=== PATIENT | female | born 1940 | race Hispanic/Latino ===

== ENCOUNTER 2017-12-18 08:31 | Observation (INO) | payer OTHER ==
[~2017-12-18] VITALS: Ht 157.5 cm; Wt 91.6 kg
[2017-12-18] MEDS ORDERED: SODIUM CHLORIDE 0.9% 1000ML 1,000 ML IV ONE ×2 (09:02→15:28)
[2017-12-18 09:07] LABS: BASOPHILS % (AUTO) 0.3 % (0.0-5.0); EOSINOPHILS % (AUTO) 0.2 % (0.0-8.0); HEMATOCRIT 42.6 % (36-48); LYMPHOCYTES % (AUTO) 12.5 % (21.0-51.0); MEAN CORPUSCULAR HEMOGLOBIN 32.5 pg (27.0-33.0); MEAN CORPUSCULAR HGB CONC 34.4 g/dL (32.0-36.0); MEAN CORPUSCULAR VOLUME 94.5 fL (79-99); MONOCYTES % (AUTO) 8.8 % (3.0-13.0); NEUTROPHILS % (AUTO) 78.2 % (40.0-77.0); PLATELET COUNT (AUTO) 240 K/uL (130-400); RED BLOOD CELL COUNT(AUTO) 4.51 MIL/uL (4.00-5.50); RED CELL DISTRIBUTION WIDTH 12.5 % (11.0-15.5); WHITE BLOOD COUNT (AUTO) 11.3 K/uL (4.8-10.8)
[2017-12-18 09:15] LABS: CREATININE 1.1 mg/dL (0.5-1.5); POTASSIUM 3.8 mmol/L (3.5-5.1)
[2017-12-18 09:17] LABS: APPEARANCE,URINE CLEAR (CLEAR); BILIRUBIN,URINE SMALL (NEGATIVE); COLOR,URINE YELLOW (YELLOW); GLUCOSE, URINE (UA) NEGATIVE (NEGATIVE); KETONES,URINE NEGATIVE (NEGATIVE); LEUKOCYTE ESTERASE ,URINE TRACE (NEGATIVE); NITRATE,URINE NEGATIVE (NEGATIVE); OCCULT BLOOD,URINE LARGE (NEGATIVE); PH,URINE 6.5 (5.0-8.0); PROTEIN,URINE >=300 (NEGATIVE); UROBILINOGEN,URINE 0.2 mg/dL (0.2-1.0)
[2017-12-18 09:26] LABS: ALBUMIN 2.5 g/dL (3.5-5.0); BILIRUBIN,TOTAL 1.9 mg/dL (0.2-1.0); TOTAL PROTEIN, SERUM 7.1 g/dL (6.0-8.3)
[2017-12-18] MEDS ORDERED: MEROPENEM 1 GM VIAL ONE (09:37)
[2017-12-18 09:38] LABS: AMORPHOUS SEDIMENT,UR Many /LPF (None Seen); BACTERIA,URINE Few /HPF (None Seen); SQUAMOUS EPITHELIAL CELL,UR Few /HPF (0-2)
[2017-12-18] MEDS ORDERED: SODIUM CHLORIDE 0.9% 50 ML IV ONE (09:40)
[2017-12-18] MEDS ORDERED: ONDANSETRON HCL MDV 20ML 2 MG/ML VIAL ONE (09:54)
[2017-12-18] MEDS ORDERED: ACETAMINOPHEN 325 MG TAB ONE (09:55)
[2017-12-18 10:05] LABS: INR 1.09 (0.85-1.15); PARTIAL THROMBOPLASTIN TIME 34.9 SEC (26.3-35.5); PROTHROMBIN TIME 11.4 SEC (9.6-11.6)
[2017-12-18 10:29] LABS: CREATINE KINASE MB < 0.5 ng/mL (0.5-3.6); CREATINE KINASE, TOTAL 37 U/L (21-232); MYOGLOBIN 49 ng/mL (10-92); TROPONIN I < 0.04 ng/mL (0.00-0.06)
[2017-12-18] MEDS ORDERED: CEFTRIAXONE SODIUM 1 GM ONE (15:28)
[2017-12-18] MEDS ORDERED: PANTOPRAZOLE SODIUM 40 MG TABLET.DR PO ONE (15:29)
[2017-12-18 20:45] VITALS: BP 122/85
[2017-12-18] MEDS ORDERED: APIX5TAB PO (23:00)
[2017-12-18] MEDS ORDERED: LEVO75 PO (23:00)
[2017-12-18] MEDS ORDERED: ATOR10 PO (23:00)
[2017-12-18] MEDS ORDERED: METO-391 PO (23:00)
[2017-12-18] MEDS ORDERED: SERT50TA12 PO (23:00)
[2017-12-19] VITALS: BP 140/73
[2017-12-19] MEDS ORDERED: ZOLPIDEM TARTRATE 5 MG TAB PO PRN (01:30)
[2017-12-19] MEDS ORDERED: POTASSIUM CHLORIDE 10% ELIXIR 20 MEQ/15 ML UDCUP PO PRN (01:30)
[2017-12-19] MEDS ORDERED: NITROGLYCERIN 0.4 MG SL TAB SL PRN (01:30)
[2017-12-19] MEDS ORDERED: POTASSIUM CHLORIDE 20MEQ/100ML 100 ML IV PRN (01:30)
[2017-12-19] MEDS ORDERED: LIDOCAINE HCL-MPF 1% 2ML VIAL IVP PRN (01:30)
[2017-12-19] MEDS ORDERED: POTASSIUM CHLORIDE 20 MEQ ERTAB PO PRN (01:30)
[2017-12-19] MEDS ORDERED: LACTULOSE 20 GM/30 ML UDCUP PO PRN (01:30)
[2017-12-19] MEDS ORDERED: ONDANSETRON HCL MDV 20ML 2 MG/ML VIAL IVP PRN (01:30)
[2017-12-19] MEDS ORDERED: CLONIDINE HCL 0.1 MG TABLET PO PRN (01:30)
[2017-12-19] MEDS ORDERED: GLUCAGON 1MG KIT 1 MG ML IM PRN (01:30)
[2017-12-19] MEDS ORDERED: ACETAMINOPHEN 325 MG TAB PO PRN ×2 (01:30)
[2017-12-19] MEDS ORDERED: GUAIFENESIN-DM 200/20 MG 10 ML PO PRN (01:30)
[2017-12-19] MEDS ORDERED: DIPHENHYDRAMINE HCL 25 MG CAPSULE PO PRN (01:30)
[2017-12-19] MEDS ORDERED: DEXTROSE 50%-WATER 50 ML DISP.SYRIN IV PRN (01:30)
[2017-12-19] MEDS ORDERED: GUAIFENESIN SUGAR-FREE 100 MG/5 ML UDCUP PO PRN (01:30)
[2017-12-19] MEDS ORDERED: DiphenhydrAMINE HCL 50 MG/ML VIAL IV PRN (01:30)
[2017-12-19 04:00] VITALS: BP 122/65
[2017-12-19] MEDS: INSULIN HUMULIN R 100 UNIT/ML 3ML SQ SCH ×4 (06:33→21:00)
[2017-12-19] MEDS: PANTOPRAZOLE SODIUM 40 MG TABLET.DR PO SCH (06:37)
[2017-12-19 08:00] VITALS: BP 108/72
[2017-12-19 11:30] VITALS: BP 107/74
[2017-12-19 16:00] VITALS: BP 134/91
[2017-12-19] MEDS ORDERED: CEFTRIAXONE SODIUM 1 GM IVP SCH (16:00)
[2017-12-19] MEDS ORDERED: CEFTRIAXONE 1GM/D5W 50ML 50 ML IV SCH (16:00)
[2017-12-19 19:46] VITALS: BP 131/79
[2017-12-20 00:11] VITALS: BP 131/88
[2017-12-20 04:47] VITALS: BP 141/83
[2017-12-20 05:00] LABS: BASOPHILS % (AUTO) 0.6 % (0.0-5.0); EOSINOPHILS % (AUTO) 0.8 % (0.0-8.0); HEMATOCRIT 36.6 % (36-48); LYMPHOCYTES % (AUTO) 15.1 % (21.0-51.0); MEAN CORPUSCULAR HEMOGLOBIN 32.5 pg (27.0-33.0); MEAN CORPUSCULAR HGB CONC 34.2 g/dL (32.0-36.0); MONOCYTES % (AUTO) 10.6 % (3.0-13.0); NEUTROPHILS % (AUTO) 72.9 % (40.0-77.0); PLATELET COUNT (AUTO) 237 K/uL (130-400); RED BLOOD CELL COUNT(AUTO) 3.86 MIL/uL (4.00-5.50); RED CELL DISTRIBUTION WIDTH 12.5 % (11.0-15.5); WHITE BLOOD COUNT (AUTO) 7.8 K/uL (4.8-10.8)
[2017-12-20 05:20] LABS: ALBUMIN 1.9 g/dL (3.5-5.0); BILIRUBIN,TOTAL 0.7 mg/dL (0.2-1.0); CREATININE 0.7 mg/dL (0.5-1.5); POTASSIUM 3.8 mmol/L (3.5-5.1); TOTAL PROTEIN, SERUM 5.7 g/dL (6.0-8.3)
[2017-12-20] MEDS: PANTOPRAZOLE SODIUM 40 MG TABLET.DR PO SCH (06:53)
[2017-12-20] MEDS: INSULIN HUMULIN R 100 UNIT/ML 3ML SQ SCH ×2 (06:53→11:05)
[2017-12-20 08:22] VITALS: BP 121/76
[2017-12-20 12:00] VITALS: BP 113/56
== END 2017-12-20 16:00 | disposition home or self-care (01) ==
LOC: EDH 08:31 → EDHIP 15:05 → 4CH 22:27
PROVIDERS: ADMIT Family Medicine; ATTEND Family Medicine
DX: R10.2 Pelvic and perineal pain (principal); I10 Essential (primary) hypertension; E78.5 Hyperlipidemia, unspecified; I48.91 Unspecified atrial fibrillation; Z87.440 Personal history of urinary (tract) infections
CPT/HCPCS: 36415 ×2; 71045; 80053 ×2; 81001; 82550; 82553; 82948 ×6; 83605 ×2; 83874; 84484; 85025 ×2; 85610; 85730; 87040 ×2; 87088; 93005; 96374; 97161; 99285; A4218; G0378 ×49; G8978; G8979; G8980; G8981; G8982; G8983; J0696 ×2; J2185; J7030 ×2; 96360; 96361

== ENCOUNTER 2017-12-25 08:45 | Emergency (ER) | payer OTHER ==
[~2017-12-25 08:45] MED LIST: APIX5TAB PO; ATOR10 PO; LEVO75 PO; METO-391 PO; SERT50TA12 PO
[2017-12-25] MEDS ORDERED: PHENAZOPYRIDINE HCL 200 MG TABLET ONE (09:14)
[2017-12-25] MEDS ORDERED: ONDANSETRON ODT 4 MG TAB ONE (09:14)
== END 2017-12-25 10:37 | disposition home or self-care (01) ==
LOC: EDH 08:45
DX: N32.81 Overactive bladder (principal); N32.89 Other specified disorders of bladder; I10 Essential (primary) hypertension; I48.91 Unspecified atrial fibrillation; Z79.899 Other long term (current) drug therapy

== ENCOUNTER 2018-06-05 06:51 | Day surgery (SDC) | payer OTHER ==
[2018-06-04 12:21] VITALS: BP 104/64
[2018-06-04 12:29] LABS: BASOPHILS % (AUTO) 2.1 % (0.0-5.0); EOSINOPHILS % (AUTO) 1.2 % (0.0-8.0); HEMATOCRIT 43.9 % (36-48); LYMPHOCYTES % (AUTO) 29.6 % (21.0-51.0); MEAN CORPUSCULAR HEMOGLOBIN 31.5 pg (27.0-33.0); MEAN CORPUSCULAR HGB CONC 33.4 g/dL (32.0-36.0); MEAN CORPUSCULAR VOLUME 94.2 fL (79-99); MONOCYTES % (AUTO) 4.9 % (3.0-13.0); NEUTROPHILS % (AUTO) 62.2 % (40.0-77.0); PLATELET COUNT (AUTO) 278 K/uL (130-400); RED BLOOD CELL COUNT(AUTO) 4.66 MIL/uL (4.00-5.50); RED CELL DISTRIBUTION WIDTH 12.9 % (11.0-15.5); WHITE BLOOD COUNT (AUTO) 5.6 K/uL (4.8-10.8)
[2018-06-04 12:41] LABS: CREATININE 0.9 mg/dL (0.5-1.5); POTASSIUM 4.1 mmol/L (3.5-5.1)
[2018-06-05] VITALS (13 sets, daily range): BP systolic 107–148; BP diastolic 61–90
[~2018-06-05] VITALS: Ht 162.6 cm; Wt 87.7 kg
[~2018-06-05 06:51] MED LIST changes: -METO-391 PO; +METO100T14 PO
[2018-06-05] MEDS ORDERED: LIDOCAINE PF 2% 5ML ABBOJECT ONE ×2 (07:48→09:26)
[2018-06-05] MEDS ORDERED: PROPOFOL 10 MG/ML 20ML VIAL IV ONE (07:48)
[2018-06-05] MEDS ORDERED: FENTANYL CITRATE PF 50 MCG/1 ML 2ML VIAL ONE ×2 (07:49)
[2018-06-05] MEDS ORDERED: ROCURONIUM 10MG/1ML SYR 10 MG/ML ML ONE (07:49)
[2018-06-05] MEDS ORDERED: BUPIVACAINE/PF 0.5% 30ML VIAL ONE (08:02)
[2018-06-05] MEDS ORDERED: LACTATED RINGERS 1000ML 1,000 ML IV ONE (08:05)
[2018-06-05] MEDS ORDERED: CEFAZOLIN SODIUM 1 GM VIAL ONE ×2 (09:38→09:43)
[2018-06-05] MEDS ORDERED: PHENYLEPHRINE HCL 10 MG/ML 1ML VIAL IV ONE (09:58)
[2018-06-05] MEDS ORDERED: ONDANSETRON HCL 4 MG/2 ML VIAL ONE (10:00)
[2018-06-05] MEDS ORDERED: DEXAMETHASONE SOD PHOSPHATE 10MG/ML 1ML VIAL ONE (10:00)
[2018-06-05] MEDS ORDERED: GLYCOPYRROLATE 1 MG/5 ML SYRINGE ONE (10:06)
[2018-06-05] MEDS ORDERED: NEOSTIGMINE 5MG/5ML SYR IV ONE (10:06)
[2018-06-05] MEDS ORDERED: MEPERIDINE-PF 25 MG/ML SYG ONE (10:40)
== END 2018-06-05 12:08 | disposition home or self-care (01) ==
LOC: DAH 06:51
PROVIDERS: ATTEND Surgery
DX: K36 Other appendicitis (principal); I10 Essential (primary) hypertension; I48.91 Unspecified atrial fibrillation; Z90.49 Acquired absence of other specified parts of digestive tract; Z90.710 Acquired absence of both cervix and uterus; Z98.890 Other specified postprocedural states
CPT/HCPCS: 36415; 44970; 80048; 85025; 88300; A4649 ×4; C1769 ×3; J0690 ×2; J1100; J2001 ×2; J2175; J2370; J2405; J2704; J2710; J3010 ×2; J3490 ×2; J7030; J7120 ×2

== ENCOUNTER → 2019-01-25 | Outpatient (CLI) | payer OTHER | END | disposition home or self-care (01) | LOC: RAH 13:44 | PROVIDERS: ATTEND Internal Medicine | DX: R60.0 Localized edema (principal) | CPT/HCPCS: 93971 ==

== ENCOUNTER → 2019-07-07 | Outpatient (CLI) | payer OTHER | END | disposition home or self-care (01) | LOC: SHCH 13:04 | PROVIDERS: ATTEND Internal Medicine Cardiovascular Disease | DX: I87.2 Venous insufficiency (chronic) (peripheral) (principal); R59.0 Localized enlarged lymph nodes | CPT/HCPCS: 93970 ==

== ENCOUNTER → 2021-04-16 | Outpatient (CLI) | payer OTHER ==
[~2021-04-16] MED LIST changes: +REGADENOSON 0.4 MG/5 ML PF SYG IVP SCH; +SERT-439 PO; -SERT50TA12 PO
== END | disposition home or self-care (01) ==
LOC: SHCH 08:37
PROVIDERS: ATTEND Internal Medicine Cardiovascular Disease
DX: Z01.810 Encounter for preprocedural cardiovascular examination (principal); R06.00 Dyspnea, unspecified
CPT/HCPCS: 78452; 93017; 96374; A9500 ×2; J2785

== ENCOUNTER 2021-07-23 18:11 | Inpatient (IN) | payer OTHER ==
[~2021-07-23] VITALS: Ht 157.5 cm; Wt 97.3 kg
[~2021-07-23 18:11] MED LIST changes: -REGADENOSON 0.4 MG/5 ML PF SYG IVP SCH
[2021-07-23 20:05] LABS: BASOPHILS % (AUTO) 0.6 % (0.0-5.0); EOSINOPHILS % (AUTO) 2.8 % (0.0-8.0); HEMATOCRIT 33.3 % (36-48); LYMPHOCYTES % (AUTO) 26.4 % (21.0-51.0); MEAN CORPUSCULAR HEMOGLOBIN 31.6 pg (27.0-33.0); MEAN CORPUSCULAR HGB CONC 32.4 g/dL (32.0-36.0); MEAN CORPUSCULAR VOLUME 97.4 fL (79-99); MONOCYTES % (AUTO) 6.6 % (3.0-13.0); NEUTROPHILS % (AUTO) 63.1 % (40.0-77.0); PLATELET COUNT (AUTO) 222 K/uL (130-400); RED BLOOD CELL COUNT(AUTO) 3.42 MIL/uL (4.00-5.50); RED CELL DISTRIBUTION WIDTH 13.7 % (11.0-15.5); WHITE BLOOD COUNT (AUTO) 6.2 K/uL (4.8-10.8)
[2021-07-23 20:15] LABS: CREATININE 1.1 mg/dL (0.5-1.5); POTASSIUM 3.3 mmol/L (3.5-5.1)
[2021-07-23 20:27] LABS: ALBUMIN 2.2 g/dL (3.5-5.0); BILIRUBIN,TOTAL 0.9 mg/dL (0.2-1.0); TOTAL PROTEIN, SERUM 5.4 g/dL (6.0-8.3)
[2021-07-23] MEDS ORDERED: POTASSIUM BICARB/CIT AC 25 MEQ TABLET.EFF PO ONE (22:30)
[2021-07-23] MEDS ORDERED: LACTATED RINGERS 1000ML 1,000 ML IV ONE (22:30)
[2021-07-24] MEDS ORDERED: ONDANSETRON 4MG TABLET PO PRN (02:30)
[2021-07-24] MEDS ORDERED: ACETAMINOPHEN 325 MG TAB PO PRN (02:30)
[2021-07-24 06:11] LABS: BASOPHILS % (AUTO) 0.6 % (0.0-5.0); EOSINOPHILS % (AUTO) 2.3 % (0.0-8.0); HEMATOCRIT 30.7 % (36-48); LYMPHOCYTES % (AUTO) 28.3 % (21.0-51.0); MEAN CORPUSCULAR HEMOGLOBIN 31.2 pg (27.0-33.0); MEAN CORPUSCULAR HGB CONC 32.6 g/dL (32.0-36.0); MEAN CORPUSCULAR VOLUME 95.6 fL (79-99); MONOCYTES % (AUTO) 8.2 % (3.0-13.0); NEUTROPHILS % (AUTO) 60.2 % (40.0-77.0); PLATELET COUNT (AUTO) 229 K/uL (130-400); RED BLOOD CELL COUNT(AUTO) 3.21 MIL/uL (4.00-5.50); RED CELL DISTRIBUTION WIDTH 13.7 % (11.0-15.5); WHITE BLOOD COUNT (AUTO) 5.3 K/uL (4.8-10.8)
[2021-07-24 06:20] LABS: MAGNESIUM 0.9 mg/dL (1.80-2.40); POTASSIUM 3.6 mmol/L (3.5-5.1)
[2021-07-24] MEDS ORDERED: ENOXAPARIN SODIUM 30 MG/0.3 ML SQ SCH (09:00)
[2021-07-24 10:52] LABS: APPEARANCE,URINE Cloudy (CLEAR); BILIRUBIN,URINE Negative (NEGATIVE); COLOR,URINE Yellow (YELLOW); GLUCOSE, URINE (UA) Negative (NEGATIVE); KETONES,URINE Trace mg/dL (NEGATIVE); LEUKOCYTE ESTERASE ,URINE Large (NEGATIVE); NITRATE,URINE Negative (NEGATIVE); OCCULT BLOOD,URINE Trace (NEGATIVE); PH,URINE 5.5 (5.0-8.0); PROTEIN,URINE POS 1+ mg/dL (NEGATIVE); UROBILINOGEN,URINE 0.2 mg/dL (0.2-1.0)
[2021-07-24 12:00] VITALS: BP 103/49
[2021-07-24 12:11] LABS: BACTERIA,URINE Rare /HPF (None Seen); RBC,URINE 0-1 /HPF (0-1)
[2021-07-24 12:12] LABS: SQUAMOUS EPITHELIAL CELL,UR Rare /HPF (0-2)
[2021-07-24 16:00] VITALS: BP 110/38
[2021-07-24] MEDS ORDERED: QUES4 PO (18:15)
[2021-07-24 20:00] VITALS: BP 92/47
[2021-07-25] VITALS (7 sets, daily range): BP systolic 84–129; BP diastolic 42–74
[2021-07-25] MEDS: LEVOTHYROXINE 75 MCG TABLET PO SCH (06:12)
[2021-07-25] MEDS ORDERED: METOPROLOL TARTRATE 50 MG TAB PO SCH (09:00)
[2021-07-25] MEDS ORDERED: SERTRALINE HCL 50 MG TABLET PO SCH (09:00)
[2021-07-25] MEDS: APIXABAN 5 MG TABLET PO SCH ×2 (09:46→20:38)
[2021-07-25] MEDS: CEFTRIAXONE 1G VIAL IVP SCH (14:38)
[2021-07-25] MEDS ORDERED: HONEY 1 APPL/ML TUBE TP SCH (15:00)
[2021-07-25] MEDS ORDERED: KCL 20 MEQ ERTAB PO PRN (17:00)
[2021-07-25] MEDS ORDERED: POTASSIUM CHLORIDE 20MEQ/100ML 100 ML IV PRN (17:00)
[2021-07-25] MEDS ORDERED: POTASSIUM CHLORIDE 10% ELIXIR 20 MEQ/15 ML UDCUP PO PRN (17:00)
[2021-07-25] MEDS ORDERED: LIDOCAINE HCL-MPF 1% 2ML VIAL IJ PRN (17:00)
[2021-07-25] MEDS: FUROSEMIDE 20 MG TABLET PO SCH (18:21)
[2021-07-25] MEDS: MAGNESIUM 2GM PREMIX 50ML 50 ML IV PRN (18:21)
[2021-07-25] MEDS ORDERED: DIGOXIN 250 MCG/ML 2ML AMP IV SCH (18:55)
[2021-07-25] MEDS: METOPROLOL TARTRATE 50 MG TAB PO SCH (20:35)
[2021-07-25] MEDS: ATORVASTATIN 20 MG TABLET PO SCH (20:38)
[2021-07-25] MEDS: SERTRALINE HCL 50 MG TABLET PO SCH (20:38)
[2021-07-25] MEDS: BALSAM PERU/CASTOR OIL 60 GM TUBE TP SCH (20:38)
[2021-07-26] VITALS (10 sets, daily range): BP systolic 67–123; BP diastolic 35–82
[2021-07-26] MEDS: LEVOTHYROXINE 75 MCG TABLET PO SCH (06:16)
[2021-07-26 06:24] LABS: MAGNESIUM 1.3 mg/dL (1.80-2.40); POTASSIUM 4.1 mmol/L (3.5-5.1)
[2021-07-26] MEDS: MAGNESIUM 2GM PREMIX 50ML 50 ML IV PRN ×2 (06:42→14:02)
[2021-07-26] MEDS: APIXABAN 5 MG TABLET PO SCH ×2 (09:41→20:23)
[2021-07-26] MEDS: SERTRALINE HCL 50 MG TABLET PO SCH ×2 (09:41→20:23)
[2021-07-26] MEDS: METOPROLOL TARTRATE 50 MG TAB PO SCH ×2 (09:41→22:18)
[2021-07-26] MEDS: DIGOXIN 125 MCG TABLET PO SCH (09:42)
[2021-07-26] MEDS: BALSAM PERU/CASTOR OIL 60 GM TUBE TP SCH ×3 (09:43→22:19)
[2021-07-26] MEDS: FUROSEMIDE 20 MG TABLET PO SCH (09:43)
[2021-07-26] MEDS ORDERED: DIGOXIN 250 MCG/ML 2ML AMP IV SCH (10:30)
[2021-07-26 10:54] LABS: HEMATOCRIT 29.4 % (36-48); MEAN CORPUSCULAR HEMOGLOBIN 31.3 pg (27.0-33.0); MEAN CORPUSCULAR HGB CONC 32.3 g/dL (32.0-36.0); MEAN CORPUSCULAR VOLUME 96.7 fL (79-99); RED BLOOD CELL COUNT(AUTO) 3.04 MIL/uL (4.00-5.50); RED CELL DISTRIBUTION WIDTH 14.2 % (11.0-15.5)
[2021-07-26] MEDS: CEFTRIAXONE 1G VIAL IVP SCH (13:57)
[2021-07-26] MEDS: ATORVASTATIN 20 MG TABLET PO SCH (20:23)
[2021-07-27] VITALS (11 sets, daily range): BP systolic 76–121; BP diastolic 30–68
[2021-07-27] MEDS: LEVOTHYROXINE 75 MCG TABLET PO SCH (06:20)
[2021-07-27] MEDS: FUROSEMIDE 20 MG TABLET PO SCH (08:36)
[2021-07-27] MEDS: DIGOXIN 125 MCG TABLET PO SCH (08:36)
[2021-07-27] MEDS: SERTRALINE HCL 50 MG TABLET PO SCH (08:36)
[2021-07-27] MEDS: APIXABAN 5 MG TABLET PO SCH ×2 (08:37→22:20)
[2021-07-27] MEDS: METOPROLOL TARTRATE 50 MG TAB PO SCH (08:37)
[2021-07-27] MEDS: BALSAM PERU/CASTOR OIL 60 GM TUBE TP SCH ×3 (08:42→22:21)
[2021-07-27] MEDS ORDERED: 0.9% NACL 250ML 250 ML IV ONE (10:00)
[2021-07-27] MEDS: MAGNESIUM CHLORIDE 70 MG TABLET.SA PO SCH (12:28)
[2021-07-27] MEDS: POTASSIUM CHLORIDE 10MEQ SR TAB PO SCH (12:29)
[2021-07-27] MEDS ORDERED: 0.9% NACL 250ML 250 ML ONE (13:58)
[2021-07-27] MEDS: CEFTRIAXONE 1G VIAL IVP SCH (14:01)
[2021-07-27] MEDS: ATORVASTATIN 20 MG TABLET PO SCH (22:20)
[2021-07-28] VITALS (7 sets, daily range): BP systolic 94–131; BP diastolic 40–68
[2021-07-28] MEDS: LEVOTHYROXINE 75 MCG TABLET PO SCH (06:35)
[2021-07-28] MEDS: BALSAM PERU/CASTOR OIL 60 GM TUBE TP SCH ×2 (09:00→21:23)
[2021-07-28] MEDS: MAGNESIUM CHLORIDE 70 MG TABLET.SA PO SCH (11:37)
[2021-07-28] MEDS: DIGOXIN 125 MCG TABLET PO SCH (11:37)
[2021-07-28] MEDS: SERTRALINE HCL 50 MG TABLET PO SCH ×2 (11:38→11:40)
[2021-07-28] MEDS: POTASSIUM CHLORIDE 10MEQ SR TAB PO SCH (11:39)
[2021-07-28] MEDS: APIXABAN 5 MG TABLET PO SCH ×2 (11:40→21:23)
[2021-07-28] MEDS: METOPROLOL TARTRATE 50 MG TAB PO SCH ×2 (11:40→21:22)
[2021-07-28] MEDS: CEFUROXIME AXETIL 250 MG TABLET PO SCH (21:22)
[2021-07-28] MEDS: ATORVASTATIN 20 MG TABLET PO SCH (21:22)
[2021-07-29] VITALS (9 sets, daily range): BP systolic 83–125; BP diastolic 31–62
[2021-07-29 05:56] LABS: HEMATOCRIT 28.4 % (36-48); MEAN CORPUSCULAR HEMOGLOBIN 31.4 pg (27.0-33.0); MEAN CORPUSCULAR HGB CONC 32.4 g/dL (32.0-36.0); MEAN CORPUSCULAR VOLUME 96.9 fL (79-99); RED BLOOD CELL COUNT(AUTO) 2.93 MIL/uL (4.00-5.50); WHITE BLOOD COUNT (AUTO) 4.4 K/uL (4.8-10.8)
[2021-07-29 06:16] LABS: CREATININE 0.8 mg/dL (0.5-1.5); MAGNESIUM 1.6 mg/dL (1.80-2.40)
[2021-07-29] MEDS: LEVOTHYROXINE 75 MCG TABLET PO SCH (06:31)
[2021-07-29] MEDS: APIXABAN 5 MG TABLET PO SCH ×2 (10:42→20:37)
[2021-07-29] MEDS: METOPROLOL TARTRATE 50 MG TAB PO SCH ×2 (10:42→20:36)
[2021-07-29] MEDS: SERTRALINE HCL 50 MG TABLET PO SCH (10:42)
[2021-07-29] MEDS: DIGOXIN 125 MCG TABLET PO SCH (10:44)
[2021-07-29] MEDS: MAGNESIUM CHLORIDE 70 MG TABLET.SA PO SCH (10:44)
[2021-07-29] MEDS: CEFUROXIME AXETIL 250 MG TABLET PO SCH ×2 (10:44→20:36)
[2021-07-29] MEDS ORDERED: MAGNESIUM 2GM PREMIX 50ML 50 ML IV SCH (11:30)
[2021-07-29] MEDS: POTASSIUM CHLORIDE 10MEQ SR TAB PO SCH ×2 (15:31→18:06)
[2021-07-29] MEDS: ATORVASTATIN 20 MG TABLET PO SCH (20:36)
[2021-07-29] MEDS: BALSAM PERU/CASTOR OIL 60 GM TUBE TP SCH (20:58)
[2021-07-30 04:00] VITALS: BP 119/48
[2021-07-30] MEDS: LEVOTHYROXINE 75 MCG TABLET PO SCH (06:25)
[2021-07-30 08:00] VITALS: BP 140/56
[2021-07-30] MEDS: APIXABAN 5 MG TABLET PO SCH (08:45)
[2021-07-30] MEDS: POTASSIUM CHLORIDE 10MEQ SR TAB PO SCH (08:46)
[2021-07-30] MEDS: CEFUROXIME AXETIL 250 MG TABLET PO SCH (08:46)
[2021-07-30] MEDS: MAGNESIUM CHLORIDE 70 MG TABLET.SA PO SCH (08:46)
[2021-07-30] MEDS: DIGOXIN 125 MCG TABLET PO SCH (08:47)
[2021-07-30] MEDS: METOPROLOL TARTRATE 50 MG TAB PO SCH (08:47)
[2021-07-30] MEDS: BALSAM PERU/CASTOR OIL 60 GM TUBE TP SCH ×2 (09:00→14:00)
[2021-07-30 10:48] LABS: HEMATOCRIT 30.7 % (36-48); MEAN CORPUSCULAR HEMOGLOBIN 31.6 pg (27.0-33.0); MEAN CORPUSCULAR HGB CONC 32.2 g/dL (32.0-36.0); MEAN CORPUSCULAR VOLUME 98.1 fL (79-99); RED BLOOD CELL COUNT(AUTO) 3.13 MIL/uL (4.00-5.50); RED CELL DISTRIBUTION WIDTH 14.2 % (11.0-15.5); WHITE BLOOD COUNT (AUTO) 4.3 K/uL (4.8-10.8)
[2021-07-30 11:00] LABS: CREATININE 0.8 mg/dL (0.5-1.5)
[2021-07-30 12:00] VITALS: BP_SYST 152; BP_SYST 83; BP_SYST 97; BP_DIAS 128; BP_DIAS 53; BP_DIAS 58
[2021-07-30 16:00] VITALS: BP 99/43
== END 2021-07-30 17:18 | DRG 690 ==
LOC: EDH 18:11 → EDHIP 22:36 → OBSVTOIN 22:36 → 3CH 07-24 11:53
PROVIDERS: ADMIT Internal Medicine Infectious Disease; ATTEND Internal Medicine Infectious Disease
DX: N39.0 Urinary tract infection, site not specified (principal); I48.20 Chronic atrial fibrillation, unspecified; L97.919 Non-pressure chronic ulcer of unspecified part of right lower leg with unspecified severity; L97.929 Non-pressure chronic ulcer of unspecified part of left lower leg with unspecified severity; I95.1 Orthostatic hypotension; E86.0 Dehydration; E87.6 Hypokalemia; E03.9 Hypothyroidism, unspecified; E11.9 Type 2 diabetes mellitus without complications; E66.01 Morbid (severe) obesity due to excess calories; E78.00 Pure hypercholesterolemia, unspecified; E78.5 Hyperlipidemia, unspecified; E83.42 Hypomagnesemia; F32.A Depression, unspecified; I10 Essential (primary) hypertension; I87.2 Venous insufficiency (chronic) (peripheral); R53.81 Other malaise; M19.90 Unspecified osteoarthritis, unspecified site; R29.6 Repeated falls; Z96.652 Presence of left artificial knee joint; Z68.39 Body mass index [BMI] 39.0-39.9, adult; Z74.01 Bed confinement status; Z79.890 Hormone replacement therapy; Z79.01 Long term (current) use of anticoagulants; Z79.899 Other long term (current) drug therapy; Z90.49 Acquired absence of other specified parts of digestive tract; Z90.710 Acquired absence of both cervix and uterus; Z88.8 Allergy status to other drugs, medicaments and biological substances; Z83.3 Family history of diabetes mellitus; Z82.49 Family history of ischemic heart disease and other diseases of the circulatory system
CPT/HCPCS: 36415; 71045; 80048; 80053; 80162; 81001; 82533; 82948; 83735; 84439; 84443; 84484; 85025; 85027; 87077; 87088; 87186; 93005; 93970; 97039; G0378; J0696; J1160; J1650; J3475; J7050; J7120